=== PATIENT | male | born 1965 | race Caucasian/White ===

== ENCOUNTER → 2023-11-06 | Outpatient (CLI) | payer BC ==
[~2023-11-06] VITALS: Ht 177.8 cm; Wt 123.5 kg
[2023-11-06] VITALS (11 sets, daily range): BP systolic 118–156; BP diastolic 74–92; PULSE 70–97; TEMP 97.7
[~2023-11-06] MED LIST: B-121000 MCG PO; CALCIUM 600 PLU1 TAB PO; MASON NATURAL325 MG PO; MOBIC15 MG PO; Midazolam 2 MG/2 ML VIAL IV SCH; PRINZIDE 12.5 M1 TAB PO; VITAMIN C500 MG PO; ZOCOR 10MG10 MG PO; fentaNYL 50 MCG/ML 2 ML VIAL IV SCH
[2023-11-06 09:33] LABS: BASO % 0.6 % (0.0-2.0); EOS # 0.1 K/mm3 (0.0-0.7); EOS % 1.8 % (0.0-4.0); GRAN # 1.5 K/mm3 (1.4-6.5); GRAN % 44.6 % (42.2-75.2); HEMOGLOBIN 12.3 g/dl (13.5-18.0); LYMPH # 1.4 K/mm3 (1.2-3.4); LYMPH % 41.4 % (20.0-51.0); MEAN CELL VOLUME 107 fl (80.0-100.0); MEAN CORPUSCULAR HEMOGLOBIN 37 pg (27-31); MEAN CORPUSCULAR HGB CONC 35 g/dl (33.0-37.0); MEAN PLATELET VOLUME 9.4 fl (7.4-10.4); MONO # 0.4 K/mm3 (0.1-0.6); MONO % 11.3 % (1.7-9.3); PLATELET COUNT 241 K/mm3 (130-400); RED BLOOD COUNT 3.29 M/mm3 (4.20-5.60); REDCELL DISTRIBUTION WIDTH-CV 13.8 % (11.5-14.5)
[2023-11-06 09:35] LABS: HEMATOCRIT 35.3 % (42.0-52.0)
--- NOTE | 2023-11-06 10:06 | NUR ---
Pt to ct per ambulation. Pt positioned in prone position on ct table. Monitors applied and O2 on at 2l/nc.
--- NOTE | 2023-11-06 10:33 | NUR ---
Specimens obtained and placed in formalin by Dr Huddleston. Specimen labeled.
== END ==
LOC: COL.RAD 08:17
PROVIDERS: Internal Medicine
DX: C90.00 Multiple myeloma not having achieved remission (principal); D47.2 Monoclonal gammopathy
CPT/HCPCS: J2250; J3010